=== PATIENT | male | born 1970 | race Caucasian/White ===

== ENCOUNTER 2020-04-02 14:08 | Emergency (ER) | payer BC ==
[2020-04-02 14:13] VITALS: BP 152/84; PULSE 93; RESP 16; TEMP 98.1
[2020-04-02] MEDS ORDERED: PROPARACAINE 0.5% OPHTH DROPS 15 ML BTL LEFT EYE STA (14:14)
[2020-04-02] MEDS ORDERED: FLUORESCEIN STRIPS 1 MG STRIP LEFT EYE STA (14:16)
--- NOTE | 2020-04-02 14:38 | ED ---
General Adult HPI - General Chief complaint: Skin/Abscess/Foreign Body Stated complaint: Shingles/eye pain Time Seen by Provider: 04/02/20 14:14 Source: patient, RN notes reviewed Mode of arrival: ambulatory Limitations: no limitations - History of Present Illness Initial comments: 40-year-old male without any significant past medical history presents to the emergency room for left eye swelling. Patient reports that about one week ago he started to get a "sunburn" feeling on the left side of his head and face. He states that about 4 days ago he developed a rash on the left side of his forehead and eye. Patient states he went to urgent care and was started on valacyclovir on Monday so has been on this for about 3-4 days. Patient then went to the emergency room and [place] 3 days ago and was given one dose of 12 mg oral Decadron. He states that today he noticed more swelling in his left eye so wanted to be seen again in the emergency room. It they do not have ophthalmology available so decided to transfer him to this facility. He did not see any dendritic lesions in the eye. Patient does not have any visual changes. - Related Data Previous Rx's Medication Instructions Recorded Clindamycin [Cleocin] 300 mg PO Q8H 7 Days #42 cap 04/02/20 predniSONE 50 mg PO DAILY #5 tablet 04/02/20 Allergies Allergy/AdvReac Type Severity Reaction Status Date / Time No Known Allergies Allergy Verified 04/02/20 14:13 Review of Systems ROS Statement: Those systems with pertinent positive or pertinent negative responses have been documented in the HPI. ROS Other: All systems not noted in ROS Statement are negative. Past Medical History Additional Past Medical History / Comment(s): shingles History of Any Multi-Drug Resistant Organisms: None Reported Past Surgical History: No Surgical Hx Reported Past Psychological History: No Psychological Hx Reported Smoking Status: Never smoker Past Alcohol Use History: None Reported Past Drug Use History: None Reported General Exam Limitations: no limitations General appearance: alert Head exam: Present: atraumatic, normocephalic Eye exam: Present: PERRL, EOMI, periorbital swelling (Mild left-sided periorbital edema, nontender nonindurated). Absent: normal appearance, scleral icterus, conjunctival injection, periorbital tenderness Expanded Eyelids: Normal Inspection: Bilateral Pupils: Regular, Round: Bilateral Sclera/Conjunctival: Normal Inspection: Bilateral (no dendritic lesions) Visual acuity (R) = 20/: 20 Visual acuity (L) = 20/: 10 With correction: No Course Vital Signs 04/02/20 14:08 Temperature 98.1 F Pulse Rate 93 Respiratory 16 Rate Blood Pressure 152/84 O2 Sat by Pulse 97 Oximetry - Reevaluation(s) Reevaluation #1: 04/02/20 14:25 Reviewed all of patient's transfer materials including CT report of brain which showed soft tissue swelling of the left eye and face. Medical Decision Making - Medical Decision Making Vitals are stable. Patient is afebrile, well-appearing. He does however have erythema noted of the V1 distribution not crossing the midline with a negative Jose sign. Ear appears normal as well without lesions. There is honey- colored crusting noted. No new drainage. Rash has been there for 4-5 days now. Patient does have a little periorbital edema however no induration or tenderness of this area. No pain with extraocular movements. No visual changes. Visual acuity is 20/10 in the left eye. I did stain the eye with fluorescein and because the Wood's lamp, no dendritic lesion. Physician in the [place] did not see dendritic lesion either. He was seen and [place] [facility] today and transferred to this facility as they do not have ophthalmology consultation. I did discuss inpatient versus outpatient management with patient. I do feel outpatient management is reasonable and patient agrees he would much rather be discharged home in [facility] the [facility]. I discussed this case with Dr. Lawrence who would like to see patient now in his [facility] office with Dr. Hebert. She was already started on valacyclovir TID and will be started on steroids and antibiotics to prevent superinfection of the area. He will go directly to the [facility]. He will return here for any worsening symptoms. I discussed this case with attending Dr. Olmos who agrees with this assessment and treatment plan. Disposition Clinical Impression: Shingles Disposition: HOME SELF-CARE Condition: Good Instructions (If sedation given, give patient instructions): [facility] (ED) Additional Instructions: Please go directly to the [facility] office in [place]. His name is Dr Roger and he works with Dr Lawrence. We did speak with Dr. Lawrence who is going to call Dr. Anup and tell him you are on your way. Continue your valacyclovir. Take antibiotic and steroid as directed. Return to the emergency room for any worsening symptoms or visual changes. Prescriptions: Clindamycin [Cleocin] 300 mg PO Q8H 7 Days #42 cap predniSONE 50 mg PO DAILY #5 tablet Is patient prescribed a controlled substance at d/c from ED?: No Referrals: Dustin Lawrence MD [STAFF PHYSICIAN] - 1-2 days Time of Disposition: 14:46
[2020-04-02] MEDS ORDERED: ACET/COD 300 MG/30 MG STARTER PACK 6 TAB BTL PO STA (14:50)
== END 2020-04-02 14:55 | disposition home or self-care (01) ==
LOC: EC 14:08
DX: B02.9 Zoster without complications (principal)
CPT/HCPCS: 99283